=== PATIENT | male | born 1995 | race Caucasian/White ===

== ENCOUNTER 2020-04-11 00:48 | Emergency (ER) | payer MEDICAID, OTHER ==
[~2020-04-11] VITALS: Ht 188 cm; Wt 82.0 kg
[~2020-04-11 00:48] MED LIST: AMOX-580 PO
[2020-04-11 00:54] VITALS: BP 148/87
== END 2020-04-11 01:42 | disposition home or self-care (01) ==
LOC: ER 00:48
DX: L55.1 Sunburn of second degree (principal); F17.200 Nicotine dependence, unspecified, uncomplicated; F12.90 Cannabis use, unspecified, uncomplicated; Z98.890 Other specified postprocedural states; Z60.2 Problems related to living alone; Z59.0 Homelessness; Z56.0 Unemployment, unspecified; Z79.899 Other long term (current) drug therapy
CPT/HCPCS: 99282